=== PATIENT | female | born 2000 | race Two or more races ===

== ENCOUNTER 2024-05-15 20:15 | Emergency (ER) | payer OTHER ==
[~2024-05-15] VITALS: Ht 175.3 cm; Wt 83.9 kg
[2024-05-15 20:34] VITALS: TEMP 97.4
[2024-05-15 20:58] LABS: BASO % 0.5 % (0.0-1.0); EOS % 0.4 % (0.0-3.0); HEMATOCRIT 37.6 % (36.0-47.0); HEMOGLOBIN 12.7 g/dl (12.0-15.5); LYMPH # 1.1 10^3/uL (1.5-5.0); MEAN CORPUSCULAR HEMOGLOBIN 31.8 pg (27.0-33.0); MEAN CORPUSCULAR HGB CONC 33.8 g/dl (32.0-36.5); MONO # 0.4 10^3/uL (0.0-0.8); MONO % 4.7 % (2.0-8.0); NEUTROPHILS # 6.1 10^3/uL (1.5-8.5); NEUTROPHILS % 80.1 % (36.0-66.0); PLATELET COUNT, AUTOMATED 218 10^3/uL (150-450); WHITE BLOOD COUNT 7.6 10^3/uL (4.0-10.0)
[2024-05-15 21:20] LABS: BLOOD UREA NITROGEN 11 MG/DL (9-23); CALCIUM LEVEL 9.7 MG/DL (8.5-10.1); CARBON DIOXIDE LEVEL 24 MMOL/L (20-31); CHLORIDE LEVEL 110 MMOL/L (98-107); CK-MB VALUE MASS < 1.0 NG/ML (<3.6); CREATININE FOR GFR 0.98 MG/DL (0.55-1.30); GLOMERULAR FILTRATION RATE > 60.0 (>60); GLUCOSE, FASTING 106 MG/DL (60-100); POTASSIUM SERUM 3.8 MMOL/L (3.5-5.1); SODIUM LEVEL 140 MMOL/L (136-145)
[2024-05-15 21:23] LABS: CPK CREATINE PHOSPHOKINASE 131 U/L (34-145); MB/CK RELATIVE INDEX 0.76 (< OR =4)
[2024-05-15] MEDS ORDERED: ISOVUE-370 76% 100ML VIAL As Ordered ONE (21:39)
[2024-05-15 21:49] LABS: C REACTIVE PROTEIN QUANTITATIV < 0.40 MG/DL (<1.0)
[2024-05-15 21:55] LABS: ERYTHROCYTE SEDIMENTATION RATE 14 mm/hr (0-20)
[2024-05-15] MEDS: NS 1,000 ML IV ONE (22:11)
[2024-05-15] MEDS: KETOROLAC 30 MG/ML 1ML VIAL IV ONE (22:11)
[2024-05-15] MEDS: LORazepam 2 MG/ML 1ML VIAL IV STA (22:12)
[2024-05-15 22:22] LABS: CK-MB VALUE MASS < 1.0 NG/ML (<3.6)
[2024-05-15 22:25] LABS: CPK CREATINE PHOSPHOKINASE 126 U/L (34-145); MB/CK RELATIVE INDEX 0.79 (< OR =4)
[2024-05-15 22:30] VITALS: BP 118/71; O2SAT 100
== END 2024-05-15 23:16 | disposition home or self-care (01) ==
LOC: M ED 20:15 → EDBD 20:15 → M ED 23:16
DX: R09.1 Pleurisy (principal)
CPT/HCPCS: 71045; 71275; 80048; 82550; 82553; 84484; 85025; 85379; 85652; 86140; 93005; 93041; 94760; 96361; 96374; 96375; 99285; J1885; J2060; Q9967

== ENCOUNTER 2024-05-16 13:50 | Emergency (ER) | payer OTHER ==
[~2024-05-16] VITALS: Ht 175.3 cm; Wt 85.7 kg
[2024-05-16 19:21] LABS: BASO % 0.2 % (0.0-1.0); EOS % 0.2 % (0.0-3.0); HEMATOCRIT 40.3 % (36.0-47.0); HEMOGLOBIN 13.4 g/dl (12.0-15.5); LYMPH # 0.9 10^3/uL (1.5-5.0); LYMPH % 10.5 % (24.0-44.0); MEAN CORPUSCULAR HEMOGLOBIN 31.9 pg (27.0-33.0); MEAN CORPUSCULAR HGB CONC 33.3 g/dl (32.0-36.5); MONO # 0.3 10^3/uL (0.0-0.8); MONO % 4.2 % (2.0-8.0); NEUTROPHILS # 6.9 10^3/uL (1.5-8.5); NEUTROPHILS % 84.7 % (36.0-66.0); PLATELET COUNT, AUTOMATED 208 10^3/uL (150-450); WHITE BLOOD COUNT 8.2 10^3/uL (4.0-10.0)
[2024-05-16 20:35] LABS: LIPASE 181 U/L (12-53)
[2024-05-16 20:37] LABS: ALBUMIN 4.1 G/DL (3.2-5.2); ALKALINE PHOSPHATASE 57 U/L (46-116); ALT/SGPT 26 U/L (7.0-40); AST/SGOT 24 U/L (<34); BILIRUBIN,DIRECT 0.3 MG/DL (<0.4); BLOOD UREA NITROGEN 10 MG/DL (9-23); CALCIUM LEVEL 9.3 MG/DL (8.5-10.1); CARBON DIOXIDE LEVEL 23 MMOL/L (20-31); CHLORIDE LEVEL 109 MMOL/L (98-107); CREATININE FOR GFR 0.95 MG/DL (0.55-1.30); GLOMERULAR FILTRATION RATE > 60.0 (>60); GLUCOSE, FASTING 96 MG/DL (60-100); POTASSIUM SERUM 3.4 MMOL/L (3.5-5.1); SODIUM LEVEL 140 MMOL/L (136-145); TOTAL PROTEIN 7.1 G/DL (5.7-8.2)
[2024-05-16] MEDS: KETOROLAC 30 MG/ML 1ML VIAL IV ONE (20:53)
[2024-05-16] MEDS: ACETAMINOPHEN 500 MG TAB PO ONE (22:44)
[2024-05-17 00:04] VITALS: BP 118/72; TEMP 97.9; O2SAT 100
== END 2024-05-17 00:06 | disposition home or self-care (01) ==
LOC: M ED 13:50
DX: R10.31 Right lower quadrant pain (principal); F31.9 Bipolar disorder, unspecified
CPT/HCPCS: 76705; 76830; 76856; 80047; 80048; 80076; 81001; 83605; 83690; 85025; 93005; 93976; 96374; 99284; J1885

== ENCOUNTER 2025-03-25 19:00 | Emergency (ER) | payer OTHER ==
[~2025-03-25] VITALS: Ht 172.7 cm; Wt 96.8 kg
[2025-03-25] MEDS ORDERED: ALBU1.25 NEB (19:32)
[2025-03-25 21:31] VITALS: BP 127/67; TEMP 98.4; O2SAT 97
== END 2025-03-25 21:34 | disposition home or self-care (01) ==
LOC: M ED 19:00
DX: M79.672 Pain in left foot (principal); J45.909 Unspecified asthma, uncomplicated